=== PATIENT | male | born 1955 | race Caucasian/White ===

== ENCOUNTER 2017-11-22 01:56 | Emergency (ER) | payer MEDICAID ==
[2017-11-22 02:28] VITALS: BP 187/86
[2017-11-22] MEDS ORDERED: Acetaminophen 325 MG Tab PO ONE (02:29)
[2017-11-22] MEDS ORDERED: Acetaminophen 500 MG Tab PO ONE (02:31)
--- NOTE | 2017-11-22 03:20 | EDM.PDOC ---
ED HPI GENERAL MEDICAL PROBLEM - General Chief Complaint: General Stated Complaint: HEADACHE Time Seen by Provider: 11/22/17 02:26 Source of Information: Reports: Patient, Family History Limitations: Reports: No Limitations - History of Present Illness INITIAL COMMENTS - FREE TEXT/NARRATIVE: Patient is a 61 year old man who yesterday at 17:00 had an episode of garbled speech that lasted a couple of minutes. He has had a headache since 19:00 last night and it has gotten to a 7-8/10 level. He normally does not have headaches. He did not fall on his head. He has a long history of Peripheral Vascular Disease with stents in his legs, so his is afraid of a possible stroke. He has no weakness or any other neurological deficit. Onset: Gradual Onset Date: 11/21/17 Onset Time: 19:00 Duration: Getting Worse Location: Reports: Head Quality: Reports: Ache Severity: Moderate Improves with: Reports: None Worsens with: Reports: None Context: Reports: Other (History of PVD) Associated Symptoms: Reports: Headaches Treatments [employer] ASS[employer] MANAGER: Reports: Other Medication(s) Other Treatments [employer] ASSET MANAGER: Motrin x2 at 0000 Head Pain Score (Numeric/FACES): 0 - Related Data Allergies Allergy/AdvReac Type Severity Reaction Status Date / Time No Known Allergies Allergy Verified 09/28/15 17:20 Home Meds: Home Meds Clopidogrel [Plavix] 75 mg PO DAILY 11/22/17 [History] aMILoride [Midamor] 2.5 mg PO DAILY 11/22/17 [History] atorvaSTATin [Lipitor] 40 mg PO BEDTIME 11/22/17 [History] Past Medical History HEENT History: Reports: Hard of Hearing, Impaired Vision Cardiovascular History: Reports: Hypertension Musculoskeletal History: Reports: Back Pain, Chronic, Neck Pain, Chronic, Osteoarthritis, Other (See Below) Other Musculoskeletal History: Stents placed in BLE 2 years ago - Infectious Disease History Infectious Disease History: Reports: Chicken Pox, Measles, Mumps - Past Surgical History HEENT Surgical History: Reports: None Cardiovascular Surgical History: Reports: None, Vascular Surgery Musculoskeletal Surgical History: Reports: None Social & Family History - Family History Family Medical History: Noncontributory - Tobacco Use Smoking Status *Q: Former Smoker Years of Tobacco use: 40 Used Tobacco, but Quit: Yes Month Tobacco Last Used: May Second Hand Smoke Exposure: No - Caffeine Use Caffeine Use: Reports: Coffee Caffeine Use Comment: 10 cup a day - Recreational Drug Use Recreational Drug Use: No ED ROS GENERAL - Review of Systems Review Of Systems: See Below Constitutional: Reports: No Symptoms HEENT: Reports: No Symptoms Respiratory: Reports: No Symptoms Cardiovascular: Reports: No Symptoms Endocrine: Reports: No Symptoms GI/Abdominal: Reports: No Symptoms : Reports: No Symptoms Musculoskeletal: Reports: No Symptoms Skin: Reports: No Symptoms Neurological: Reports: Headache Psychiatric: Reports: No Symptoms Hematologic/Lymphatic: Reports: No Symptoms Immunologic: Reports: No Symptoms ED EXAM, GENERAL - Physical Exam Exam: See Below Exam Limited By: No Limitations General Appearance: Alert, WD/WN, No Apparent Distress Eye Exam: Bilateral Eye: EOMI, Normal Fundi, Normal Inspection, PERRL Ears: Normal External Exam, Normal Canal, Hearing Grossly Normal, Normal TMs Ear Exam: Bilateral Ear: Auricle Normal, Canal Normal, TM normal Nose: Normal Inspection, Normal Mucosa, No Blood Throat/Mouth: Normal Inspection, Normal Lips, Normal Teeth, Normal Gums, Normal Oropharynx, Normal Voice, No Airway Compromise Head: Atraumatic, Normocephalic Neck: Normal Inspection, Supple, Non-Tender, Full Range of Motion Respiratory/Chest: No Respiratory Distress, Lungs Clear, Normal Breath Sounds, No Accessory Muscle Use, Chest Non-Tender Cardiovascular: Normal Peripheral Pulses, Regular Rate, Rhythm, No Edema, No Gallop, No JVD, No Murmur, No Rub Back Exam: Normal Inspection Extremities: Normal Inspection, Normal Range of Motion, Non-Tender, Normal Capillary Refill, No Pedal Edema Neurological: Alert, Oriented, CN II-XII Intact, Normal Cognition, Normal Gait, Normal Reflexes, No Motor/Sensory Deficits Psychiatric: Normal Affect, Normal Mood Skin Exam: Warm, Dry, Intact, Normal Color, No Rash Lymphatic: No Adenopathy EKG INTERPRETATION EKG Date: 11/22/17 Rhythm: NSR [place]: RAD-Right [place] Deviation P-Wave: Present QRS: Normal ST-T: Normal QT: Normal Comparison: NA - No Prior EKG Course - Vital Signs Text/Narrative:: Uneventful ED course. He did get a little relief from the tylenol for his headache. His labs and Head CT were all normal and he will continue his home medications and take an aspirin daily and tylenol 1000 mg po q 8 hours. He will follow up with Dr. Andrade next week and recheck in ED if symptoms changes or worsens. Last Recorded V/S: Last Vital Signs Temp 36.9 C 11/22/17 02:27 Pulse 62 11/22/17 02:27 Resp 20 11/22/17 02:27 BP 187/86 H 11/22/17 02:27 Pulse Ox 98 11/22/17 02:27 - Orders/Labs/Meds Orders: Active Orders 24 hr Category Date Time Status EKG Documentation Completion [RC] ASDIRECTED Care 11/22/17 02:18 Active Head wo Cont [CT] Stat Exams 11/22/17 02:19 Ordered EKG 12 Lead [EK] Routine Ther 11/22/17 02:17 Ordered Labs: Laboratory Tests 11/22/17 11/22/17 Range/Units 02:30 02:30 WBC 11.6 H D (4.0-11.0) K/uL RBC 5.08 (4.50-6.50) M/uL Hgb 15.2 (13.0-18.0) g/dL Hct 45.2 (40.0-54.0) % MCV 89 (76-96) fL MCH 29.9 (27.0-32.0) pg MCHC 33.6 (31.0-35.0) g/dL RDW 14.7 (11.0-16.0) % Plt Count 167 (150-400) K/uL MPV 13.1 H (6.0-10.0) fL Neut % (Auto) 76.9 H (45.0-70.0) % Lymph % (Auto) 13.3 L (20.0-40.0) % [place] % (Auto) 7.6 (3.0-10.0) % Eos % (Auto) 1.7 (1.0-5.0) % Baso % (Auto) 0.5 (0.0-0.5) % Neut # (Auto) 8.92 H (2.00-7.50) K/uL Lymph # (Auto) 1.54 (1.50-4.00) K/uL [place] # (Auto) 0.88 H (0.20-0.80) K/uL Eos # (Auto) 0.20 (0.04-0.40) K/uL Baso # (Auto) 0.06 (0.02-0.10) K/uL Sodium 142 (136-145) mmol/L Potassium 4.3 (3.5-5.1) mmol/L Chloride 107 (98-107) mmol/L Carbon Dioxide 28.1 (21.0-32.0) mmol/L Anion Gap 11.2 (5.0-15.0) mmol/L BUN 19 (8-26) mg/dL Creatinine 1.34 H D (0.70-1.30) mg/dL Est Cr Clr Drug Dosing TNP Estimated GFR (MDRD) 54 L (>60) MLS/MIN BUN/Creatinine Ratio 14.2 (6-25) Glucose 123 H (74-100) mg/dL Calcium 9.3 (8.5-10.1) mg/dL Total Bilirubin 0.3 D (0.0-1.0) mg/dL AST 11 L (15-37) U/L ALT 20 (12-78) U/L Alkaline Phosphatase 148 H (46-116) U/L Troponin I < 0.017 (0.000-0.060) ng/mL Total Protein 6.9 (6.4-8.2) g/dL Albumin 3.7 (3.4-5.0) g/dL Globulin 3.2 (2.2-4.2) g/dL Albumin/Globulin Ratio 1.2 (0.8-2.0) Meds: Medications Discontinued Medications Generic Name Dose Route Start Last Admin Trade Name Sukhdeepq PRN Reason Stop Dose Admin Acetaminophen 650 mg 11/22/17 02:29 11/22/17 02:32 Tylenol PO 11/22/17 02:30 Not Given NOW ONE Acetaminophen 1,000 mg 11/22/17 02:31 11/22/17 02:13 Tylenol Extra Strength PO 11/22/17 02:32 1,000 mg ONETIME ONE Administration Departure - Departure Time of Disposition: 03:24 Disposition: Home, Self-Care 01 Condition: Good Clinical Impression: Headache above the eye region - Discharge Information - My Orders Last 24 Hours: My Active Orders 11/22/17 02:17 EKG 12 Lead [EK] Routine 11/22/17 02:18 EKG Documentation Completion [RC] ASDIRECTED 11/22/17 02:19 Head wo Cont [CT] Stat - Assessment/Plan Last 24 Hours: My Active Orders 11/22/17 02:17 EKG 12 Lead [EK] Routine 11/22/17 02:18 EKG Documentation Completion [RC] ASDIRECTED 11/22/17 02:19 Head wo Cont [CT] Stat
--- NOTE | 2017-11-23 01:37 | CT ---
UNENHANCED BRAIN CT, 11/22/17 Multislice acquisition through the brain without IV contrast was performed. There is mild diffuse cerebral atrophy. There are periventricular lucencies bilaterally consistent with small vessel ischemic change. There is a focal lucency in the right basal ganglia consistent with an old lacunar infarct. No masses or mass effect. No intracranial hemorrhage. No evidence of acute or subacute infarct. No osseous abnormalities. IMPRESSION: No acute intracranial abnormalities. [id number] [facility]
== END 2017-11-22 03:26 | disposition home or self-care (01) ==
LOC: LB.ED 01:56
DX: R51 Headache (principal); I10 Essential (primary) hypertension; M19.90 Unspecified osteoarthritis, unspecified site; Z79.899 Other long term (current) drug therapy; Z87.891 Personal history of nicotine dependence
CPT/HCPCS: 36415; 70450; 80053; 84484; 85025; 93005; 99284; A9270

== ENCOUNTER 2020-05-09 08:42 | Emergency (ER) | payer MEDICARE, BC ==
[2020-05-09] MEDS: Tetracaine 0.5% Ophth Soln 15 ML Bottle EYELF ONE (09:10)
[2020-05-09] MEDS: Fluorescein 1 MG Ophth Strip EYELF ONE (09:11)
--- NOTE | 2020-05-09 09:30 | EDM.PDOC ---
ED HPI GENERAL MEDICAL PROBLEM - General Chief Complaint: Eye Problems Stated Complaint: OBJECT IN EYE Time Seen by Provider: 05/09/20 09:10 Source of Information: Reports: Patient History Limitations: Reports: No Limitations - History of Present Illness INITIAL COMMENTS - FREE TEXT/NARRATIVE: Patient concerned about scratch of cornea after having small branch poke his eye yesterday while blueberry picking. Now with pain and sensitivity to light in left eye. Denies other injury. At times has FB sensation. Imjury occurred yesterday. Denies vision changes Onset: Other (Yesterday) Onset Date: 05/08/20 Onset Time: 16:00 Duration: Other (one day) Location: Reports: Other (Left eye) Severity: Moderate Worsens with: Reports: Other (Light exposure) - Related Data Allergies Allergy/AdvReac Type Severity Reaction Status Date / Time No Known Allergies Allergy Verified 09/28/15 17:20 Home Meds: Home Meds Clopidogrel [Plavix] 75 mg PO DAILY 11/22/17 [History] aMILoride [Midamor] 2.5 mg PO DAILY 11/22/17 [History] atorvaSTATin [Lipitor] 40 mg PO BEDTIME 11/22/17 [History] Past Medical History HEENT History: Reports: Hard of Hearing, Impaired Vision Cardiovascular History: Reports: Hypertension Musculoskeletal History: Reports: Back Pain, Chronic, Neck Pain, Chronic, Osteoarthritis, Other (See Below) Other Musculoskeletal History: Stents placed in BLE 2 years ago - Infectious Disease History Infectious Disease History: Reports: Chicken Pox, Measles, Mumps - Past Surgical History HEENT Surgical History: Reports: None Cardiovascular Surgical History: Reports: None, Vascular Surgery Musculoskeletal Surgical History: Reports: None Social & Family History - Family History Family Medical History: Noncontributory - Caffeine Use Caffeine Use: Reports: Coffee Caffeine Use Comment: 10 cup a day ED ROS GENERAL - Review of Systems Review Of Systems: See Below Constitutional: Reports: No Symptoms Respiratory: Reports: No Symptoms Cardiovascular: Reports: No Symptoms GI/Abdominal: Reports: No Symptoms ED EXAM GENERAL W FULL EYE - Physical Exam Exam: See Below Exam Limited By: No Limitations General Appearance: Alert, No Apparent Distress Eye Exam: Left Eye: Corneal Abrasion, Bilateral Eye: Foreign Body (NO FB), PERRL, Vision Changes (NO vision change) Eyelids: Bilateral: Normal Appearance Conjunctiva & Sclera: Bilateral: Discharge (none) Cornea Exam: Left: Corneal Abrasion (2 mm corneal abrasion with flurescein uptake) Extraocular Movements: Bilateral: Intact Pupillary Size: Bilateral: 4 mm Pupillary Reaction: Bilateral: Brisk Anterior Chamber: Bilateral: Normal Appearance Posterior Chamber: Bilateral: Normal Funduscopic Ears: Normal External Exam, Normal Canal, Normal TMs Nose: Normal Inspection, Normal Mucosa Head: Atraumatic, Normocephalic Respiratory/Chest: No Respiratory Distress ED EYE w/ Add Procedure - Eye Procedure Alcaine Drops Administered: Yes (3 drops tetracaine to left eye) Eye FB Removal: Removal w/ Cotton Swab, Removal w/ Needle, Other (NO FB seen) Progress: Positive fluorescein uptake with corneal abrasion present of left cornea Course - Vital Signs Text/Narrative:: Patient takes meloxicam. Will continue Meloxicam. Has taken lots of narcotic pain meds in past and prefers not to use at this time. Erythromycin ointment prescribed qid dx 3 days. Recheck if 2 days if pain or other eye problems do not clear Last Recorded V/S: Last Vital Signs Temp 98 F 05/09/20 09:05 Pulse 77 05/09/20 09:05 Resp 16 05/09/20 09:05 BP 123/64 05/09/20 09:05 Pulse Ox 98 05/09/20 09:05 - Orders/Labs/Meds Meds: Medications Discontinued Medications Generic Name Dose Route Start Last Admin Trade Name Moses PRN Reason Stop Dose Admin Fluorescein Sodium 1 mg 05/09/20 09:11 05/09/20 09:11 Ful-Bridgett EYELF 05/09/20 09:12 1 mg ONETIME ONE Administration Tetracaine 1 ml 05/09/20 09:10 05/09/20 09:10 Tetracaine 0.5% Ophth Soln EYELF 05/09/20 09:11 1 drop ASDIRECTED ONE Administration Departure - Departure Time of Disposition: 10:45 Disposition: Home, Self-Care 01 Clinical Impression: Corneal abrasion, left Qualifiers: Encounter type: initial encounter Qualified Code(s): S05.02XA - Injury of conjunctiva and corneal abrasion without foreign body, left eye, initial encounter - Discharge Information *PRESCRIPTION DRUG MONITORING PROGRAM REVIEWED*: Not Applicable *COPY OF PRESCRIPTION DRUG MONITORING REPORT IN PATIENT MINDY: Not Applicable Instructions: Erythromycin eye ointment, Corneal Abrasion, [id number] Referrals: PCP,None [Primary Care Provider] - Forms: ED Department Discharge Additional Instructions: supervisor policy change clerks prescription for erythromycin ointment at pharmacy and instill into eye 4 times daily according to instructions for next 3 days. May take tylenol as needed for pain according to package instructions. Follow up in clinic on Thursday if your vision is not back to normal. Should symptoms worsen or persist, return sooner for recheck. Call with any questions.
[2020-05-09 10:06] VITALS: BP 123/64; PULSE 77
== END 2020-05-09 09:23 | disposition home or self-care (01) ==
LOC: LB.ED 08:42
DX: S05.02XA Injury of conjunctiva and corneal abrasion without foreign body, left eye, initial encounter (principal); I10 Essential (primary) hypertension; Z79.02 Long term (current) use of antithrombotics/antiplatelets; Z79.899 Other long term (current) drug therapy; X58.XXXA Exposure to other specified factors, initial encounter
CPT/HCPCS: 65220; 99283-25; A9270-GY

== ENCOUNTER 2020-05-11 14:27 | Emergency (ER) | payer MEDICARE, BC ==
[2020-05-11 16:09] VITALS: BP 126/73; PULSE 52
--- NOTE | 2020-05-11 17:36 | EDM.PDOC ---
ED HPI GENERAL MEDICAL PROBLEM - General Chief Complaint: Eye Problems Stated Complaint: SOMETHING IN EYE/RECHECK Time Seen by Provider: 05/11/20 16:10 - History of Present Illness INITIAL COMMENTS - FREE TEXT/NARRATIVE: Seen in ED two days ago but now with continued blurred vision and some mild pain in right eye Onset Date: 05/09/20 Left Eye Pain Score (Numeric/FACES): 3 - Related Data Allergies Allergy/AdvReac Type Severity Reaction Status Date / Time No Known Allergies Allergy Verified 05/11/20 16:06 Home Meds: Home Meds Clopidogrel [Plavix] 75 mg PO DAILY 11/22/17 [History] aMILoride [Midamor] 2.5 mg PO DAILY 11/22/17 [History] atorvaSTATin [Lipitor] 40 mg PO BEDTIME 11/22/17 [History] Past Medical History HEENT History: Reports: Hard of Hearing, Impaired Vision Cardiovascular History: Reports: Hypertension Musculoskeletal History: Reports: Back Pain, Chronic, Neck Pain, Chronic, Osteoarthritis, Other (See Below) Other Musculoskeletal History: Stents placed in BLE 2 years ago - Infectious Disease History Infectious Disease History: Reports: Chicken Pox, Measles, Mumps - Past Surgical History HEENT Surgical History: Reports: None Cardiovascular Surgical History: Reports: None, Vascular Surgery Musculoskeletal Surgical History: Reports: None Social & Family History - Family History Family Medical History: Noncontributory - Caffeine Use Caffeine Use: Reports: Coffee Caffeine Use Comment: 10 cup a day ED ROS GENERAL - Review of Systems Review Of Systems: See Below Constitutional: Denies: Fever, Chills HEENT: Reports: Eye Pain, Vision Change Respiratory: Reports: No Symptoms ED EXAM GENERAL W FULL EYE - Physical Exam Exam: See Below Eye Exam: Left Eye: Other (Healing corneal abrasion with noFB with lid eversion or visible corneal FB) Conjunctiva & Sclera: Bilateral: Normal Appearance Cornea Exam: Left: Corneal Abrasion Extraocular Movements: Bilateral: Intact Head: Atraumatic, Normocephalic Course - Vital Signs Text/Narrative:: Eye rechecked and healing corneal abrasion present. NO FB seen with lid eversion. Visaul acuity 20/70 R and 20/30 Left Last Recorded V/S: Last Vital Signs Temp 97 F 05/11/20 16:07 Pulse 52 L 05/11/20 16:07 Resp 16 05/11/20 16:07 BP 126/73 05/11/20 16:07 Pulse Ox Departure - Departure Time of Disposition: 16:30 Disposition: Home, Self-Care 01 Condition: Good Clinical Impression: Corneal abrasion Qualifiers: Encounter type: initial encounter Laterality: left Qualified Code(s): S05.02XA - Injury of conjunctiva and corneal abrasion without foreign body, left eye, initial encounter - Discharge Information *PRESCRIPTION DRUG MONITORING PROGRAM REVIEWED*: No *COPY OF PRESCRIPTION DRUG MONITORING REPORT IN PATIENT MINDY: No Instructions: Corneal Abrasion, [id number] Referrals: PCP,None [Primary Care Provider] - Forms: ED Department Discharge Care Plan Goals: Recheck if pain does not improve, stop Visine . Continue antibiotic ointment. Sepsis Event Note (ED) - Evaluation Sepsis Screening Result: No Definite Risk - Focused Exam Vital Signs: Vital Signs Temp Pulse Resp BP 05/11/20 16:07 97 F 52 L 16 126/73
== END 2020-05-11 16:27 | disposition home or self-care (01) ==
LOC: LB.ED 14:27
DX: S05.02XA Injury of conjunctiva and corneal abrasion without foreign body, left eye, initial encounter (principal); I10 Essential (primary) hypertension; Z79.02 Long term (current) use of antithrombotics/antiplatelets; Z79.899 Other long term (current) drug therapy; X58.XXXA Exposure to other specified factors, initial encounter
CPT/HCPCS: 99283

== ENCOUNTER 2022-04-05 20:08 | Emergency (ER) | payer MEDICARE, BC ==
[2022-04-05] MEDS ORDERED: traMADol 50 MG Tab PO ONE (21:36)
[2022-04-05] MEDS ORDERED: traMADol 50 MG Tab ONE (22:03)
[2022-04-05 22:04] VITALS: BP 131/86; PULSE 86
== END 2022-04-05 22:04 | disposition home or self-care (01) ==
LOC: LB.ED 20:08
DX: S79.912A Unspecified injury of left hip, initial encounter (principal); M19.90 Unspecified osteoarthritis, unspecified site; I10 Essential (primary) hypertension; Z91.041 Radiographic dye allergy status; Z79.82 Long term (current) use of aspirin; Z79.02 Long term (current) use of antithrombotics/antiplatelets; Z79.899 Other long term (current) drug therapy; W18.30XA Fall on same level, unspecified, initial encounter
CPT/HCPCS: 73502-LT; 99282; 99283; A9270-GY

== ENCOUNTER 2024-11-12 05:10 | Emergency (ER) | payer MEDICARE, BC ==
[2024-11-12] MEDS ORDERED: Sodium Chloride 0.9% 10 ML Syringe FLUSH PRN (06:24)
[2024-11-12] MEDS: Sodium Chloride 0.9% 1,000 ML IV ONE (06:24)
[2024-11-12 06:29] LABS: BASOPHILS ABSOLUTE AUTO 0.05 K/uL (0.02-0.10); BASOPHILS PERCENT AUTO 0.3 % (0.0-0.5); EOSINOPHILS ABSOLUTE AUTO 0.09 K/uL (0.04-0.40); EOSINOPHILS PERCENT AUTO 0.6 % (1.0-5.0); HEMATOCRIT 45.5 % (40.0-54.0); HEMOGLOBIN 15.4 g/dL (13.0-18.0); LYMPHOCYTES ABSOLUTE AUTO 1.24 K/uL (1.50-4.00); LYMPHOCYTES PERCENT AUTO 7.9 % (20.0-40.0); MEAN CORPUSCULAR HEMOGLOBIN 30.9 pg (27.0-32.0); MEAN CORPUSCULAR HGB CONC 33.8 g/dL (31.0-35.0); MEAN CORPUSCULAR VOLUME 91 fL (76-96); MEAN PLATELET VOLUME 11.8 fL (6.0-10.0); MONOCYTES ABSOLUTE AUTO 0.92 K/uL (0.20-0.80); MONOCYTES PERCENT AUTO 5.8 % (3.0-10.0); NEUTROPHILS ABSOLUTE AUTO 13.47 K/uL (2.00-7.50); NEUTROPHILS PERCENT AUTO 85.4 % (45.0-70.0); PLATELET COUNT,PLT 162 K/uL (150-400); RED BLOOD CELL COUNT 4.99 M/uL (4.50-6.50); WHITE BLOOD CELL COUNT,WBC 15.8 K/uL (4.0-11.0)
[2024-11-12 06:42] LABS: A/G RATIO 1.1 (0.8-2.0); ANION GAP 13.8 mmol/L (5.0-15.0); BILIRUBIN TOTAL 0.6 mg/dL (0.0-1.0); BUN/CREATININE RATIO 19.2 (6-25); CALCIUM 9.2 mg/dL (8.5-10.1); CARBON DIOXIDE,CO2 26.8 mmol/L (21.0-32.0); CREATININE 1.25 mg/dL (0.70-1.30); EST CRCL DRUG DOSING (CG) 53.2 mL/min; POTASSIUM,K 4.6 mmol/L (3.5-5.1); PROTEIN TOTAL,TP 7.6 g/dL (6.4-8.2)
[2024-11-12 06:57] LABS: APPEARANCE,URINE CLEAR (CLEAR); BILIRUBIN,URINE NEGATIVE (NEGATIVE); COLOR,URINE YELLOW; GLUCOSE,URINE NEGATIVE (NEGATIVE); KETONES,URINE NEGATIVE (NEGATIVE); LEUKOCYTE ESTERASE,URINE NEGATIVE (NEGATIVE); NITRITE,URINE NEGATIVE (NEGATIVE); OCCULT BLOOD,URINE NEGATIVE (NEGATIVE); PROTEIN,URINE NEGATIVE (NEGATIVE); RBC,URINE 0-5 /HPF; UROBILINOGEN,URINE 0.2 E.U./dL (0.2-1.0); WBC,URINE NOT SEEN /HPF
[2024-11-12 07:07] VITALS: BP 129/78; PULSE 71
== END 2024-11-12 07:15 | disposition home or self-care (01) ==
LOC: LB.ED 05:10
DX: R33.9 Retention of urine, unspecified (principal); I25.10 Atherosclerotic heart disease of native coronary artery without angina pectoris; I10 Essential (primary) hypertension; F17.210 Nicotine dependence, cigarettes, uncomplicated; Z90.89 Acquired absence of other organs; Z95.1 Presence of aortocoronary bypass graft; Z91.041 Radiographic dye allergy status; Z79.01 Long term (current) use of anticoagulants; Z79.899 Other long term (current) drug therapy
CPT/HCPCS: 36415; 51702; 80053; 81001; 83605; 83690; 85025; 96360; 99283; 99284-25; J7030

== ENCOUNTER 2025-02-13 10:19 | Emergency (ER) | payer MEDICARE, BC ==
[2025-02-13 11:33] LABS: APPEARANCE,URINE CLOUDY (CLEAR); BILIRUBIN,URINE NEGATIVE (NEGATIVE); COLOR,URINE OTHER; GLUCOSE,URINE NEGATIVE (NEGATIVE); KETONES,URINE NEGATIVE (NEGATIVE); PROTEIN,URINE 100 mg/dL (NEGATIVE)
[2025-02-13 11:34] LABS: LEUKOCYTE ESTERASE,URINE LARGE (NEGATIVE); NITRITE,URINE NEGATIVE (NEGATIVE); OCCULT BLOOD,URINE LARGE (NEGATIVE)
[2025-02-13 11:41] LABS: RBC,URINE >100 /HPF; WBC,URINE >100 /HPF
[2025-02-13 12:07] VITALS: BP 125/74; PULSE 80
== END 2025-02-13 11:50 | disposition home or self-care (01) ==
LOC: LB.ED 10:19
DX: T83.091A Other mechanical complication of indwelling urethral catheter, initial encounter (principal); I25.10 Atherosclerotic heart disease of native coronary artery without angina pectoris; I10 Essential (primary) hypertension; Z95.5 Presence of coronary angioplasty implant and graft; Z91.041 Radiographic dye allergy status; Z79.899 Other long term (current) drug therapy; Z79.01 Long term (current) use of anticoagulants; Y84.6 Urinary catheterization as the cause of abnormal reaction of the patient, or of later complication, without mention of misadventure at the time of the procedure
CPT/HCPCS: 51702; 81001; 87086; 99283